=== PATIENT | male | born 1995 | race Two or more races ===

== ENCOUNTER 2019-10-02 13:52 | Emergency (ER) | payer OTHER ==
[~2019-10-02] VITALS: Ht 172.7 cm; Wt 90.7 kg
[2019-10-02 14:40] VITALS: BP 122/78
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
[2019-10-02] MEDS ORDERED: Methocarbamol 750mg tab ORAL ONE (14:45)
[2019-10-02] MEDS ORDERED: Ketorolac 30mg Inj IM ONE (14:45)
[2019-10-02] MEDS ORDERED: ROBAXIN-500MG ORAL (15:10)
[2019-10-02] MEDS ORDERED: IBU800 MG PO (15:10)
[2019-10-02] MEDS ORDERED: LIDODERM700 M1 TOPIC (15:10)
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
[2019-10-02 15:23] VITALS: BP 125/74
--- NOTE | 2019-10-02 15:42 | NUR ---
ER DISCHARGE NOTE: Patient is cleared to be discharged per ERMD, pt is aox4, on room air, with stable vital signs as documented. pt was given dc and prescription instructions, pt was able to verbalize understanding, pt id band removed. pt is able to ambulate with steady gait. pt took all belongings.
== END 2019-10-02 15:23 | disposition home or self-care (01) ==
LOC: EMR 15:09
DX: S16.1XXA Strain of muscle, fascia and tendon at neck level, initial encounter (principal); V49.9XXA Car occupant (driver) (passenger) injured in unspecified traffic accident, initial encounter; Y92.9 Unspecified place or not applicable
CPT/HCPCS: 96372; 99283; J1885